=== PATIENT | female | born 1985 | race Caucasian/White ===

== ENCOUNTER 2024-06-02 01:14 | Emergency (ER) | payer SELFPAY ==
[2024-06-02 01:30] VITALS: BP 112/74; PULSE 62; RESP 17; TEMP 37.2; O2SAT 98
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
[2024-06-02 03:19] VITALS: RESP 18
== END 2024-06-02 03:20 | disposition home or self-care (01) ==
PROVIDERS: Emergency Provider Emergency Medicine; PCP Family Medicine
DX: S16.1XXA Strain of muscle, fascia and tendon at neck level, initial encounter (principal); S09.90XA Unspecified injury of head, initial encounter; V89.2XXA Person injured in unspecified motor-vehicle accident, traffic, initial encounter
CPT/HCPCS: 70450; 72125; 99284

== ENCOUNTER 2024-06-06 08:59 | Emergency (ER) | payer SELFPAY ==
[2024-06-06 09:22] VITALS: BP 111/75; PULSE 61; RESP 16; TEMP 37.2; O2SAT 98
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
[2024-06-06] MEDS: CYCLObenzaPRINE 5 MG TABLET PO (09:49)
[2024-06-06] MEDS: ACETAMINOPHEN 500 MG TABLET 1000 MG PO (09:49)
[2024-06-06] MEDS: IBUPROFEN TAB 400 MG TABLET 800 MG PO (09:49)
== END 2024-06-06 11:46 | disposition home or self-care (01) ==
PROVIDERS: Emergency Provider Emergency Medicine; PCP Family Medicine
DX: S10.93XA Contusion of unspecified part of neck, initial encounter (principal); S40.011A Contusion of right shoulder, initial encounter; V49.9XXA Car occupant (driver) (passenger) injured in unspecified traffic accident, initial encounter
CPT/HCPCS: 93005; 99283; A9270